=== PATIENT | male | born 1995 | race Caucasian/White ===

== ENCOUNTER 2021-07-23 10:45 | Outpatient (CLI) | payer OTHER, SELFPAY ==
--- NOTE | ~2021-07-23 | XR_ITS ---
XR chest 2V DATE: 07/23/2021 11:10 INDICATION: Asthma TECHNIQUE: PA and lateral views COMPARISON: None FINDINGS: Normal heart size. No hilar or mediastinal enlargement. No pulmonary infiltrate or consolid ation, pleural effusion or pulmonary vascular congestion or pneumothorax is detected. Mild thoracic scoliosis. IMPRESSION: No active cardiopulmonary disease Reviewed, dictated and finalized at location [facility]. [facility]
[2021-07-23 11:11] LABS: Basophils Absolute Auto 0.1 K/mm3 (0.0-0.1); Basophils Percent Auto 0.9 % (0.2-1.2); Eosinophils Absolute Auto 0.1 K/mm3 (0-0.3); Eosinophils Percent Auto 1.8 % (0-4.4); Hematocrit 45.9 % (42.0-52.0); Hemoglobin 15.1 g/dL (14.0-18.0); Immature Granulocyte Absolute 0.01 K/mm3 (0.00-0.031); Immature Granulocyte Percent A 0.2 % (0-0.5); Lymphocytes Absolute Auto 1.26 K/mm3 (0.9-3.2); Mean Corpuscular HGB Conc 32.9 g/dl (32-36); Mean Corpuscular Hemoglobin 30.2 pg (26-34); Mean Corpuscular Volume 91.8 fl (80-100); Mean Platelet Volume 9.5 fl (7.4-10.4); Monocytes Absolute Auto 0.5 K/mm3 (0.1-0.6); Monocytes Percent Auto 8.2 % (2.6-8.5); Neutrophils Absolute Auto 3.6 K/mm3 (1.3-6.7); Neutrophils Percent Auto 65.9 % (45.5-73.1); Platelet Count Result 245 k/mm3 (150-375); Red Cell Distribution Width 12.7 % (11.5-14.5); White Blood Count 5.5 K/mm3 (4.5-10.0)
[2021-07-23 11:22] LABS: Alanine Aminotransferase 21 U/L (4-50); Albumin Level 4.9 g/dL (3.5-5.1); Alkaline Phosphatase 44 U/L (38-126); Anion Gap 9 mmol/L (8-16); Aspartate Amino Transferase 23 U/L (17-59); Bilirubin,Total 0.5 mg/dL (0.2-1.3); Blood Urea Nitrogen 13 mg/dL (9-20); Calcium 9.4 mg/dL (8.4-10.2); Carbon Dioxide 26 mmol/L (22-30); Chloride 106 mmol/L (98-107); Estimated Glomerular Filt Rate > 60; Glucose 97 mg/dL (65-110); Potassium 3.8 mmol/L (3.4-5.0); Sodium 141 mmol/L (137-145)
[2021-07-23 12:01] LABS: HIV 1/2 Ab P24 Ag Result Negative (Negative)
[2021-07-23 12:17] LABS: Hepatitis B Surface Antigen Negative (Negative)
[2021-07-26 07:15] LABS: Rapid Plasma Reagin Non-Reactive (NonReactive)
== END 2021-07-23 10:46 | disposition home or self-care (01) ==
PROVIDERS: PCP Internal Medicine; Visit Provider Nurse Practitioner
DX: J45.909 Unspecified asthma, uncomplicated (principal); Z13.29 Encounter for screening for other suspected endocrine disorder; Z72.51 High risk heterosexual behavior; M41.9 Scoliosis, unspecified
CPT/HCPCS: 36415; 71046; 80053; 85025; 86592; 86703; 86850; 86900; 86901; 87340; G0432